=== PATIENT | male | born 2000 | race Hispanic/Latino ===

== ENCOUNTER 2022-10-11 22:41 | Emergency (ER) | payer OTHER, SELFPAY ==
--- NOTE | ~2022-10-11 | XR_ITS ---
EXAMINATION: XR ribs RT 2V w CXR 2V DATE: 10/12/2022 00:20 INDICATION: Right chest pain. TECHNIQUE: Frontal and lateral views of the chest and 2 views on 3 radiographs of the right ribs were obtained. COMPARISON: None. FINDINGS: CHEST TWO VIEWS: The chest demonstrates clear lungs without pneumonia, pleural effusion, or pneumotho rax. The heart size is normal. RIGHT RIBS: There is no rib fracture. IMPRESSION: 1. No rib fracture. Reviewed, dictated and finalized at location A. RITY ANALYST IMPRESSION: 1. No rib fracture.
--- NOTE | ~2022-10-11 | XR_ITS ---
EXAMINATION: XR hand RT min 3V DATE: 10/12/2022 00:20 INDICATION: Right thumb pain. Injury. TECHNIQUE: 3 views of right hand were obtained. COMPARISON: None. FINDINGS: Bone alignment is normal. No fracture. Joint spaces are well maintained. IMPRESSION: 1. Normal right hand. Reviewed, dictated and finalized at location A. K ABSORBER INSTALLER IMPRESSION: 1. Normal right hand.
[2022-10-11 22:44] VITALS: BP 130/77; PULSE 94; RESP 16; TEMP 36.8; O2SAT 100
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
== END 2022-10-12 01:00 | disposition home or self-care (01) ==
PROVIDERS: Emergency Provider Nurse Practitioner Family
DX: S20.211A Contusion of right front wall of thorax, initial encounter (principal); S63.601A Unspecified sprain of right thumb, initial encounter; Y04.8XXA Assault by other bodily force, initial encounter
CPT/HCPCS: 71046; 71100; 73130; 99284